=== PATIENT | female | born 1965 | race African-American/Black ===

== ENCOUNTER 2024-01-29 07:57 | Emergency (ER) | payer OTHER ==
[~2024-01-29] VITALS: Ht 149.9 cm; Wt 49.0 kg
[2024-01-29 08:03] VITALS: BP 142/85; PULSE 81; RESP 16; TEMP 98.3; O2SAT 99
== END 2024-01-29 09:00 | disposition left against medical advice (07) ==
LOC: ER 07:57
DX: R51.9 Headache, unspecified (principal); Z53.21 Procedure and treatment not carried out due to patient leaving prior to being seen by health care provider